=== PATIENT | female | born 1965 | race Caucasian/White ===

== ENCOUNTER 2022-09-05 15:56 | Emergency (ER) | payer OTHER, SELFPAY ==
--- NOTE | ~2022-09-05 | XR_ITS ---
EXAMINATION: XR ankle RT min 3V INDICATION: Right ankle pain TECHNIQUE: Four views of the right ankle are obtained. COMPARISON: None available FINDINGS: There is a subtle heterotopic ossification projecting distal to the lateral malleolus which appears to be well-corticated. There is lateral soft tissue swelling of ankle. Bone alignment is nor mal. Mild osteoarthritis is noted. IMPRESSION: 1. Heterotopic ossification projecting distal to the lateral malleolus which could reflect prior inju ry. Correlate for tenderness at this site. Reviewed, dictated and finalized at location F. IMPRESSION: 1. Heterotopic ossification projecting distal to the lateral malleolus which co uld reflect prior injury. Correlate for tenderness at this site.
--- NOTE | ~2022-09-05 | XR_ITS ---
EXAMINATION: XR foot RT min 3V DATE: 09/05/2022 16:37 INDICATION: Right foot pain TECHNIQUE: Dorsoplantar, lateral, and 2 oblique views of the right foot were obtained. COMPARISON: None. FINDINGS: Bone alignment is normal. There is no fracture. There is mild osteoarthritis of the first m etatarsophalangeal and first interphalangeal joints as well as multiple interphalangeal joints. There appears to be an old injury at the anterolateral aspect of the medial malleolus. IMPRESSION: 1. No acute osseous abnormality. Reviewed, dictated and finalized at location F.
[2022-09-05 16:04] VITALS: BP 119/79; PULSE 87; RESP 20; TEMP 36.9; O2SAT 96
--- NOTE | 2022-09-05 16:26 | ED.LOWEXIN ---
HPI - Extremity Injury (Lower) General Chief Complaint: Extremity Injury, Lower Stated Complaint: Right ankle injury Time Seen by Provider: 09/05/22 16:10 Source: patient Mode of arrival: ambulatory Limitations: no limitations History of Present Illness HPI Narrative: Ms. guzman is a 57-year-old female patient presenting to the clinic today with complaints of right ankle and foot pain. She reports that she twisted her ankle around 11:00 this morning when walking down some steps. She reports that she stepped down on the final platform and her foot twisted inward. She is unable to bear weight due to pain. She is using crutches. She rates her pain currently a 5 out of 10 while sitting Related Data Home Medications Medication Instructions Recorded Confirmed amitriptyline 25 mg tablet 25 mg PO HS 09/05/22 09/05/22 buprenorphine 2 mg-naloxone 0.5 mg tablet sublingual 09/05/22 09/05/22 sublingual tablet gabapentin 100 mg capsule 100 mg PO TID 09/05/22 09/05/22 Allergies Allergy/AdvReac Type Severity Reaction Status Date / Time No Known Allergies Allergy Verified 09/05/22 16:21 [facility] Comments At the time of my signature, I reviewed and agree with the nursing past medical, surgical, social, and family history. There is no relevant family history pertinent to the patient complaint. Exam Narrative: General: Well-developed, well nourished, in no apparent distress Head: Normocephalic, atraumatic. Cardio: Regular rate and rhythm, s1 and s2 normal, no murmur appreciated. Resp: Clear to auscultation bilaterally, no rhonchi, rales, wheezing or rubs. Musculoskeletal: No deformity, swelling to the lateral ankle, tender to palpation over the right lateral malleolus and the lateral foot, limited range of motion due to pain, pain with dorsal and plantar flexion as well as valgus and varus testing, negative foot drop, muscle strength strong and equal, peripheral pulse strong, no cyanosis, using crutches Course Course Emergency Course: Portions of this record may have been created with voice recognition software. Level of Care: Express Care Visit Vital Signs Vital signs: Vital Signs Temperature 36.9 C 09/05/22 16:04 Pulse Rate 87 09/05/22 16:04 Respiratory Rate 20 09/05/22 16:04 Blood Pressure 119/79 09/05/22 16:04 Pulse Oximetry 96 09/05/22 16:04 Oxygen Delivery Room Air 09/05/22 16:04 Temperature 36.9 C 09/05/22 16:04 Pulse Rate 87 09/05/22 16:04 Respiratory Rate 20 09/05/22 16:04 Blood Pressure 119/79 09/05/22 16:04 Pulse Oximetry 96 09/05/22 16:04 Oxygen Delivery Room Air 09/05/22 16:04 Vital signs reviewed MDM - Extremity Injury (Lower) MDM Narrative Medical decision making narrative: At the time of visit patient is resting comfortably on the exam table. X-ray was performed Imaging Data Radiologist's impression: Close Foot X-Ray (Signed) Kavon Dick - 09/05/22 Launch?[facility] [employer] [place] [address] XRay Report Signed Patient: Jannie Guzman : 1965 MR#: [id number] Age/Sex: 57 / F Acct:[id number] Loc: [facility]? ? ADM Date: 09/05/22Attending Dr: Ordering Physician: Paco Restrepo APRN Date of Service: 09/05/22 Procedure(s): XR foot RT min 3V Accession Number(s): [id number] cc: Paco Restrepo APRN; Komal, Criselda RODRIGES~ EXAMINATION: XR foot RT min 3V DATE: 09/05/2022 16:37 INDICATION: Right foot pain TECHNIQUE: Dorsoplantar, lateral, and 2 oblique views of the right foot were obtained. COMPARISON: None. FINDINGS: Bone alignment is normal. There is no fracture. 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 There appears to be an old injury at the anterolateral aspect of the medial malleolus. IMPRESSION: 1. No acute osseou
== END 2022-09-05 17:20 | disposition home or self-care (01) ==
PROVIDERS: Emergency Provider Nurse Practitioner Family; PCP Internal Medicine
DX: M25.571 Pain in right ankle and joints of right foot (principal); S93.601A Unspecified sprain of right foot, initial encounter; X50.9XXA Other and unspecified overexertion or strenuous movements or postures, initial encounter
CPT/HCPCS: 73610; 73630; 99203; G0463